=== PATIENT | male | born 1970 | race African-American/Black ===

== ENCOUNTER 2017-08-05 21:33 | Emergency (ER) | payer MEDICAID, OTHER ==
[~2017-08-05] VITALS: Ht 180.3 cm; Wt 83.9 kg
[2017-08-05 21:37] VITALS: BP 126/70
--- NOTE | 2017-08-05 21:55 | NUR ---
ASKED PT FOR URINE SAMPLE, PT STATES HE CAN NOT GIVE URINE SAMPLE
--- NOTE | 2017-08-05 23:02 | NUR ---
CALLED PT IN [place], NO RESPONSE
--- NOTE | 2017-08-05 23:28 | NUR ---
CALLED PT IN [place], NO RESPONSE
== END 2017-08-05 23:35 | disposition left against medical advice (07) ==
LOC: ER 21:36
DX: Z53.21 Procedure and treatment not carried out due to patient leaving prior to being seen by health care provider (principal)
CPT/HCPCS: A4606; Z7610

== ENCOUNTER 2017-08-05 23:36 | Emergency (ER) | payer MEDICAID, OTHER ==
[~2017-08-05] VITALS: Ht 180.3 cm; Wt 83.5 kg
[2017-08-05 23:38] VITALS: BP 146/99
--- NOTE | 2017-08-06 | NUR ---
called pt in wr, no response
--- NOTE | 2017-08-06 00:40 | NUR ---
called pt in wr, no response
== END 2017-08-06 00:41 | disposition left against medical advice (07) ==
LOC: ER 23:37
DX: Z53.21 Procedure and treatment not carried out due to patient leaving prior to being seen by health care provider (principal)
CPT/HCPCS: A4606; Z7610

== ENCOUNTER 2017-11-12 01:48 | Emergency (ER) | payer MEDICAID ==
[~2017-11-12] VITALS: Ht 180.3 cm; Wt 88.0 kg
--- NOTE | 2017-11-12 02:15 | NUR ---
PT AMBULATORY TO ER BED 11. PT BIB SELF NEEDING MED CLEARANCE FOR [facility]. PT PLACED ON INSEMINATION WORKER. VSS/RESP EVEN UNLABORED/NAD NOTED/AFEBRILE/SKIN WARM AND DRY/DENIES N-V-D/AOX4. AWAITING MD STRONG.
--- NOTE | 2017-11-12 02:20 | NUR ---
LABR AT BEDSIDE TO DRAW.
--- NOTE | 2017-11-12 02:22 | NUR ---
URINE SPECIMEN OBTAINED AND SENT TO LAB.
[2017-11-12 02:57] LABS: BASOPHILS # (AUTO) 0.1 /CMM (0.0-0.2); BASOPHILS % (AUTO) 0.7 % (0.0-2.0); EOSINOPHILS # (AUTO) 0.3 /CMM (0.0-0.7); EOSINOPHILS % (AUTO) 3.1 % (0.0-6.0); HEMATOCRIT 30 % (39-51); HEMOGLOBIN 10.3 g/dL (13.5-17.5); LYMPHOCYTES # (AUTO) 2.2 /CMM (0.8-4.8); LYMPHOCYTES % (AUTO) 20.2 % (20.0-44.0); MEAN CORPUSCULAR HEMOGLOBIN 29 PG (26.0-33.0); MEAN CORPUSCULAR HGB CONC 34 g/dl (31.0-36.0); MEAN CORPUSCULAR VOLUME 86 fL (80-96); MONOCYTES # (AUTO) 1.1 /CMM (0.1-1.30); MONOCYTES % (AUTO) 10.3 % (2.0-12.0); NEUTROPHILS % (AUTO) 65.7 % (43.0-81.0); PLATELET COUNT (AUTO) 249 /CMM (150-450); RDW COEFFICIENT OF VARIATION 14.3 (11.5-15.0); RED BLOOD CELL COUNT(AUTO) 3.53 MIL/uL (4.5-6.0); WHITE BLOOD COUNT (AUTO) 10.7 K/uL (4.3-11.0)
[2017-11-12 03:02] LABS: APPEARANCE,URINE CLEAR (CLEAR); BILIRUBIN,URINE NEGATIVE (NEGATIVE); BLOOD, URINE 1+ Ery/uL (NEGATIVE); COLOR,URINE YELLOW (YELLOW); KETONES,URINE NEGATIVE (NEGATIVE); LEUKOCYTE ESTERASE ,URINE NEGATIVE (NEGATIVE); NITRITE, URINE NEGATIVE (NEGATIVE); PROTEIN,URINE NEGATIVE (NEGATIVE); UGLUCOSE NEGATIVE (NEGATIVE); UROBILINOGEN,URINE 0.2 EU/dL (0.2)
--- NOTE | 2017-11-12 03:04 | NUR ---
SIRENA ARZATE, DOCTOR'S ASSISTANT AT BEDSIDE FOR EVAL
[2017-11-12 03:06] LABS: BACTERIA,URINE None seen /HPF (None Seen); SQUAMOUS EPITHELIAL CELL,UR Few /HPF (None Seen); WBC,URINE 0-2 /HPF (0-3)
[2017-11-12 03:14] LABS: ALANINE AMINOTRANSFERASE 28 U/L (12-78); ALBUMIN 3.4 g/dL (3.4-5.0); ALCOHOL, BLOOD < 3 mg/dL (0-0); ALKALINE PHOSPHATASE 123 U/L (46-116); ASPARTATE AMINOTRANSFERASE 34 U/L (15-37); BILIRUBIN,DIRECT 0.2 mg/dL (0.0-0.2); CALCIUM, SERUM 8.9 mg/dL (8.5-10.1); CARBON DIOXIDE 26 mmol/L (21-32); CHLORIDE 112 mmol/L (98-107); CREATININE 1.1 mg/dL (0.6-1.3); GLUCOSE 102 mg/dL (74-106); POTASSIUM 3.9 mmol/L (3.5-5.1); SODIUM SERUM 145 mmol/L (136-145); UREA NITROGEN, BLOOD 20 mg/dL (7-18)
[2017-11-12 03:26] LABS: ACETAMINOPHEN 0 ug/ml (10-30)
--- NOTE | 2017-11-12 04:11 | NUR ---
FAXED LABS AND PHYSICIAN'S NOTE TO [facility]
--- NOTE | 2017-11-12 04:51 | NUR ---
SPOKE WITH AVANI @ [facility]. PER AVANI, "BED WILL LIKELY BE AVAILABLE AROUND 7:30 TO 8:00."
[2017-11-12 05:13] VITALS: BP 139/74
--- NOTE | 2017-11-12 05:13 | NUR ---
Patient discharged to home in stable condition. Written and verbal after care instructions given. Patient verbalizes understanding of instruction. Patient ambulatory with a steady gait.
== END 2017-11-12 05:14 | disposition home or self-care (01) ==
LOC: EDUNIT# 01:48 → ER 01:50
DX: R45.851 Suicidal ideations (principal); Z88.2 Allergy status to sulfonamides; Z88.8 Allergy status to other drugs, medicaments and biological substances
CPT/HCPCS: 36415; 80048; 80076; 80305; 80329; 81001; 85025; 99284; A4606; G0480 ×2; Z7610; 81000-TC

== ENCOUNTER 2017-11-12 13:17 | Emergency (ER) | payer MEDICAID ==
[~2017-11-12] VITALS: Ht 180.3 cm; Wt 89.8 kg
[2017-11-12 13:17] VITALS: BP 142/99
[2017-11-12] MEDS ORDERED: ASPIRIN 325 MG TABLET PO ONE (13:30)
[2017-11-12] MEDS ORDERED: ONDANSETRON HCL/PF 4 MG/2 ML VIAL IVP ONE (13:30)
--- NOTE | 2017-11-12 13:30 | NUR ---
PT DENIES CP. PARI MUTUAL TICKET CHECKER AT BS FOR EVAL. VSS.
--- NOTE | 2017-11-12 13:49 | NUR ---
Patient discharged to home in stable condition. Written and verbal after care instructions given. Patient verbalizes understanding of instruction.
== END 2017-11-12 13:59 | disposition home or self-care (01) ==
LOC: ER 13:18
DX: T18.128A Food in esophagus causing other injury, initial encounter (principal); I10 Essential (primary) hypertension; F32.9 Major depressive disorder, single episode, unspecified; Z88.2 Allergy status to sulfonamides; Z88.8 Allergy status to other drugs, medicaments and biological substances; X58.XXXA Exposure to other specified factors, initial encounter; Y93.89 Activity, other specified; Y92.89 Other specified places as the place of occurrence of the external cause; Y99.8 Other external cause status
CPT/HCPCS: 99283; A4606; Z7610

== ENCOUNTER 2018-05-12 01:22 | Emergency (ER) | payer MEDICAID ==
[~2018-05-12] VITALS: Ht 180.3 cm; Wt 93.9 kg
[2018-05-12 01:32] VITALS: BP 145/72
--- NOTE | 2018-05-12 01:53 | NUR ---
CALLED [facility] TECHNICIAN, CAM ETIENNE . LEFT A MESSAGE AND NOTIFIED HER OF THE PT'S ARRIVAL IN THE ER.
== END 2018-05-12 02:00 | disposition home or self-care (01) ==
LOC: ER 01:25
DX: S51.802D Unspecified open wound of left forearm, subsequent encounter (principal); I10 Essential (primary) hypertension; F32.9 Major depressive disorder, single episode, unspecified; Z88.2 Allergy status to sulfonamides; Z88.1 Allergy status to other antibiotic agents; V29.88XD Motorcycle rider (driver) (passenger) injured in other specified transport accidents, subsequent encounter; Y93.55 Activity, bike riding; Y92.413 State road as the place of occurrence of the external cause; Y99.8 Other external cause status
CPT/HCPCS: 99283; A4606; Z7610

== ENCOUNTER 2018-06-10 03:43 | Emergency (ER) | payer MEDICAID ==
[~2018-06-10] VITALS: Ht 180.3 cm; Wt 97.5 kg
[2018-06-10] MEDS ORDERED: IBUPROFEN 400 MG TABLET PO ONE (04:30)
--- NOTE | 2018-06-10 04:32 | NUR ---
URINE COLLECTED. CALLED LAB FOR TRAILER ASSEMBLER
--- NOTE | 2018-06-10 04:37 | NUR ---
PT AMBULATORY TO ER BED 12. BBSELF C/C TESTICULAR PAIN WHEN URINATING. PT STATES TESTICLE TRAUMA X 1 MONTH AGO. PT PLACED IN GOWN AND ON ROUTE INSPECTOR. VSS/RESP EVEN UNLABORED/NAD NOTED/SKIN WARM AND DRY/AFEBRILE/DENIES N-V-D/AOX4. AWAITNG MD STRONG.
[2018-06-10] MEDS ORDERED: IBUPROFEN 400 MG TABLET ONE (04:43)
--- NOTE | 2018-06-10 05:02 | NUR ---
ULTRASOUND AT BEDSIDE.
[2018-06-10 05:09] LABS: APPEARANCE,URINE CLEAR (CLEAR); BILIRUBIN,URINE NEGATIVE (NEGATIVE); BLOOD, URINE TRACE Ery/uL (NEGATIVE); COLOR,URINE YELLOW (YELLOW); KETONES,URINE NEGATIVE (NEGATIVE); LEUKOCYTE ESTERASE ,URINE NEGATIVE (NEGATIVE); NITRITE, URINE NEGATIVE (NEGATIVE); PH,URINE 6.5 (5.0-8.0); PROTEIN,URINE NEGATIVE (NEGATIVE); UGLUCOSE NEGATIVE (NEGATIVE); UROBILINOGEN,URINE 0.2 EU/dL (0.2)
[2018-06-10 05:11] LABS: BACTERIA,URINE None seen /HPF (None Seen); RBC,URINE 0-2 /HPF (0-2); SQUAMOUS EPITHELIAL CELL,UR Few /HPF (None Seen); WBC,URINE 0-2 /HPF (0-3)
--- NOTE | 2018-06-10 06:32 | NUR ---
Patient discharged to home in stable condition. Written and verbal after care instructions given. Patient verbalizes understanding of instruction. Patient ambulatory with a steady gait.
[2018-06-10 06:33] VITALS: BP 127/78
== END 2018-06-10 06:34 | disposition home or self-care (01) ==
LOC: ER 03:45
DX: N50.812 Left testicular pain (principal); N50.811 Right testicular pain; I10 Essential (primary) hypertension; F32.9 Major depressive disorder, single episode, unspecified; Z88.2 Allergy status to sulfonamides; Z88.1 Allergy status to other antibiotic agents
CPT/HCPCS: 76870; 81001; 99285; A4606; Z7610; 81000-TC

== ENCOUNTER 2018-06-21 01:44 | Emergency (ER) | payer MEDICAID ==
--- NOTE | 2018-06-21 02:09 | NUR ---
STATES "I WAS AT [facility] 3 DAYS AGO AND WAS GIVEN A RX OF PROZAC BUT LOST IT. I JUST FOUND IT BUT HAVE AN APPOINTMENT WITH MY PSYCHIATRIST AT 0700 TODAY FOR A REFILL. I JUST CAME HERE FOR OBSERVATION FOR 5 HOURS AND THEN GO FOR MY APPOINTMENT AT 0700". DENIES SI/HI WHEN ASKED BY PSYCH EVALUATIOR BRENDA/FORREST/ALFIE. PT THEN DECIDES TO LEAVE AND STATES "I WILL JUST F/U WITH THE APPOINTMENT AT 0700". REFUSES TO BE TRIAGED.
== END 2018-06-21 02:18 | disposition left against medical advice (07) ==
LOC: ER 01:48
DX: F32.9 Major depressive disorder, single episode, unspecified (principal); Z53.21 Procedure and treatment not carried out due to patient leaving prior to being seen by health care provider; Z88.2 Allergy status to sulfonamides; Z88.1 Allergy status to other antibiotic agents